=== PATIENT | female | born 1965 | race Caucasian/White ===

== ENCOUNTER 2017-04-15 09:33 | Inpatient (IN) | payer BC ==
[~2017-04-15] VITALS: Ht 160 cm; Wt 86.2 kg
--- NOTE | 2017-04-15 10:12 | Diagnostic Imaging Report ---
History: Left-sided weakness Comparison studies: None Technique: Axial images were obtained from the skull base to the vertex. Coronal and sagittal reconstructions obtained from the axial data. Findings: Scalp/skull: No abnormalities. No fractures, blastic or lytic lesions. Extra-axial spaces: No masses. No fluid collections. Brain sulci: Appropriate for age. Ventricles: Normal in size and configuration. No hydrocephalus. Parenchyma: No abnormal densities. No masses, hemorrhage, acute or chronic cortical vascular insults. Sellar/suprasellar region: No abnormalities Craniocervical junction: Patent foramen magnum. No Chiari one malformation. IMPRESSION: No abnormalities . Signed by: DR Ricardo Suh M.D. on 04/15/2017 10:09 AM
[2017-04-15 10:23] LABS: BASOPHILS % 0.5 % (0.0-1.0); EOSINOPHILS # (AUTO) 0.4 (0.0-0.4); EOSINOPHILS % 4.7 % (0.0-6.0); HEMATOCRIT 34.8 % (34.2-44.1); HEMOGLOBIN 11.8 g/dL (12.0-16.0); LYMPHOCYTES # (AUTO) 2.4 (1.0-3.2); LYMPHOCYTES % 31.6 % (18.0-39.1); MEAN CORPUSCULAR HGB CONC 33.9 g/dL (31-35); MEAN CORPUSCULAR VOLUME 85.5 fL (81-99); MONOCYTES # (AUTO) 0.7 (0.2-0.8); MONOCYTES % 9.1 % (4.4-11.3); NEUTROPHILS # (AUTO) 4.1 (2.1-6.9); NEUTROPHILS % 53.7 % (38.7-80.0); PLATELET COUNT 392 x10e3/uL (140-360); RED BLOOD COUNT 4.07 x10e6/uL (3.6-5.1); RED CELL DISTRIBUTION WIDTH 13.1 % (11.7-14.4)
[2017-04-15 10:48] LABS: ALANINE AMINOTRANSFERASE 18 IU/L (0-55); ALBUMIN 3.8 g/dL (3.5-5.0); ALBUMIN/GLOBULIN RATIO 1.1 (0.8-2.0); ALKALINE PHOSPHATASE 74 IU/L (40-150); ANION GAP 13.9 mmol/L (8-16); BLOOD UREA NITROGEN 12 mg/dL (7-26); BUN/CREATININE RATIO 17 (6-25); CALCIUM 9.3 mg/dL (8.4-10.2); CARBON DIOXIDE 26 mmol/L (22-29); CHLORIDE 105 mmol/L (98-107); CREATININE, SERUM 0.69 mg/dL (0.57-1.11); EST GLOMERULAR FILTRATION RATE > 60 ML/MIN (60-); GLUCOSE 105 mg/dL (74-118); POTASSIUM 3.9 mmol/L (3.5-5.1); SODIUM 141 mmol/L (136-145)
[2017-04-15 11:09] LABS: INR 0.94; PROTHROMBIN TIME 11.8 seconds (11.9-14.5)
[2017-04-15 11:10] LABS: PARTIAL THROMBOPLASTIN TIME 25.2 seconds (23.8-35.5)
[2017-04-15 11:47] LABS: CREATINE KINASE MB 1.8 ng/mL (0-5.0)
[2017-04-15] MEDS: SODIUM CHLORIDE 0.9% 1000ML 1,000 ML IV SCH ×2 (12:00→22:03)
[2017-04-15] MEDS ORDERED: ASPIRIN 81 MG CHEW TAB PO ONE (12:00)
[2017-04-15] MEDS: ACETAMINOPHEN 325 MG TAB PO PRN (12:06)
[2017-04-15] MEDS ORDERED: LORAZEPAM INJ 2 MG/ML VIAL IV ONE (12:45)
--- OUTSIDE RECORDS SUMMARY | 2017-04-15 12:46 | XMS REPORT ---
Author Author [facility] Address Unknown Phone Unavailable Care Team Providers Care Tub Wash Operator Name Role Phone MISTY RIVERA Unavailable Unavailable Problems This patient has no known problems. Allergies, Adverse Reactions, Alerts This patient has no known allergies or adverse reactions. Medications This patient has no known medications. Results Test Description Test Time Test Comments Text Results Atomic Results Result Comments CT BRAIN WO [place] [address] Patient Name: ОЛЬГА GASCA MR #: [id number] : 1965 Age/Sex: 51/F Req #: [id number] Adm Physician: Ordered by: MISTY RIVERA MD Report #: [id number] Location: ER Room/Bed: Procedure: [id number] CT/CT BRAIN WO Exam Date: 04/15/17 Exam Time: 0930 REPORT STATUS: Signed History: Left-sided weakness Comparison studies: None Technique: Axial images were obtained from the skull base to the vertex. Coronal and sagittal reconstructions obtained from the axial data. Findings: Scalp/skull: No abnormalities. No fractures, blastic or lytic lesions. Extra-axial spaces: No masses. No fluid collections. Brain sulci: Appropriate for age. Ventricles: Normal in size and configuration. No hydrocephalus. Parenchyma: No abnormal densities. No masses, hemorrhage, acute or chronic cortical vascular insults. Sellar/suprasellar region: No abnormalities Craniocervical junction: Patent foramen magnum. No Chiari one malformation. IMPRESSION: No abnormalities . Signed by: DR Ricardo Suh M.D. on 04/15/2017 10:09 AM Dictated By: RICARDO WESLEY MD [id number] Transcribed By: MARGARETTE on 04/15/17 1009 COPY TO: MISTY RIVERA MD
[2017-04-15] MEDS ORDERED: PANTOPRAZOLE SO40 MG PO (13:34)
[2017-04-15] MEDS ORDERED: AMBIEN CR12.5 MG (13:34)
[2017-04-15 14:00] VITALS: BP 150/72
[2017-04-15 14:08] VITALS: BP 139/85
--- NOTE | 2017-04-15 14:15 | History and Physical ---
CHIEF COMPLAINT: Left side face and upper and lower extremity tingling and numbness. Left upper extremity and lower extremity weakness since 2 days. HPI: This is a 51-year-old female with a past medical history of bronchial asthma, hypertension, hyperlipidemia, insomnia. She was in her usual state of health until she came to my office this morning with complaint of left-sided facial tingling and numbness, some mild weakness of the left upper extremity and lower extremity. No seizures. This thing happened 2 days ago and still persists. No chest pain. No shortness of breath. No cough. No abdominal pain. No nausea or vomiting. No hematemesis. No melena. PAST MEDICAL HISTORY 1. Hypertension. 2. Hyperlipidemia. 3. Insomnia. 4. Bronchial asthma. PAST SURGICAL HISTORY 1. Hysterectomy. 2. Breast biopsy. HABITS: Denies smoking. Denies alcohol use. Denies illicit drug use. FAMILY HISTORY: Noncontributory. MEDICATIONS: List attached. REVIEW OF SYSTEMS GENERAL: Fatigue and weakness. HEENT: No diplopia. No blurring of vision. CARDIOPULMONARY: No chest pain. No shortness of breath. No cough. ALIMENTARY SYSTEM: No nausea or vomiting. GENITOURINARY: No dysuria. No hematuria. MUSCULOSKELETAL: No joint pain. CENTRAL NERVOUS SYSTEM: Has left-sided weakness, tingling and numbness of the body. No seizures. PHYSICAL EXAMINATION GENERAL: This is a 51-year-old female who is alert and oriented times 3, in no gross distress. VITAL SIGNS: Temperature 98.2, pulse 77, respiratory rate 18, blood pressure 143/94. HEENT: Left-sided face mild weakness. Some tingling and numbness. Pupils are bilaterally equal and reactive to light. The extraocular muscles are intact. NECK: Supple. No JVD. No carotid bruit. LUNGS: Clear to auscultation and percussion bilaterally. No added sound. HEART: S1 and S2. Regular rate and rhythm. No S3, S4 or murmur. ABDOMEN: Soft. Nontender. No guarding. No rigidity. EXTREMITIES: No clubbing. No cyanosis. No pedal edema. Peripheral pulses are +1. CUSTOM HOME INSTALLER: Alert and oriented times 3. Reflexes decreased on the left side. Left upper extremity power 4/5. Left lower extremity power 4/5. Sensation decreased on the left side. Gait is normal. CT of the head is negative. CMP and cardiac enzymes normal. White count 7.62, hemoglobin 11.8, platelets 392. ASSESSMENT 1. Transient ischemic attack kind of symptoms. Will rule out cerebrovascular accident. 2. Hypertension. 3. Hyperlipidemia. 4. Bronchial asthma. PLAN 1. Admit patient to telemetry. 2. Cardiology consult with Dr. Alvarenga. 3. Neurology consult with Dr. Suzy Cai. 4. MRI of the brain. 5. IV fluids with normal saline at 100 mL per hour. 6. Aspirin 325 mg p.o. daily. 7. Neuro checks q.4 h. 8. Lipid panel, ANIBAL, sed rate, hemoglobin A1c and BMP in the morning. Will do echo and carotid. Job#: [id number]
--- NOTE | 2017-04-15 14:48 | Diagnostic Imaging Report ---
History: Left-sided weakness Comparison studies: CT head 04/15/2017 Technique: Sagittal T2; axial DWI, FLAIR, MPGR, T1, Coronal FLAIR. Intravenous contrast: None Findings: Scalp: Normal in signal . No masses . Bone marrow: Normal in signal intensity. Extra-axial: No masses, no fluid collections. Brain sulci: Appropriate for age. Ventricles: Normal in size . No hydrocephalus . Parenchyma: No abnormal signal intensities. No masses, hemorrhage, acute or chronic vascular insults. Suprasellar region: No abnormalities. Craniocervical junction: No abnormalities. Patent foramen magnum. No Chiari one malformation. Vessels: Normal flow-voids in the arteries and sinuses. IMPRESSION: 1. No abnormalities Signed by: DR Ricardo Suh M.D. on 04/15/2017 2:44 PM
[2017-04-15 16:00] VITALS: BP 134/77
--- NOTE | 2017-04-15 18:55 | Consultation ---
DATE OF CONSULTATION: April 15, 2017 CARDIOLOGY CONSULTATION REASON FOR CONSULTATION: TIA. HISTORY OF PRESENT ILLNESS: This is a 51-year-old woman with a history of hypertension, hyperlipidemia, and asthma, who presents with complaints of left-sided weakness. She reports she has been having left-sided facial numbness, as well as weakness of her left arm and legs for the last 3 days. She presented as this did not improve. She presented her primary care physician, Dr. Gutierrez, for further evaluation, who referred her to the ER for further imaging. She denies any chest pain, palpitations, orthopnea, PND, or syncope. She does endorse chronic shortness of breath secondary to her asthma, which is unchanged, as well as lightheadedness when looking up. REVIEW OF SYSTEMS: Negative except as per HPI. PAST MEDICAL HISTORY: Hypertension, hyperlipidemia, asthma. PAST SURGICAL HISTORY: Hysterectomy, lumpectomy. SOCIAL HISTORY: She quit smoking 2 years ago. Previously smoked a third a pack a day for 20 years. No illicit drugs. Occasional alcohol. FAMILY HISTORY: Noncontributory. ALLERGIES: NO KNOWN DRUG ALLERGIES. MEDICATIONS: Please see medication list. PHYSICAL EXAMINATION VITALS: Temperature 97.3 degrees, pulse 76, respiratory rate 19, blood pressure 134/77, oxygen saturation 100% on room air. GENERAL: A well-developed, well-nourished woman in no acute distress. HEENT: Normocephalic and atraumatic. Pupils equal. No scleral icterus. NECK: Supple. No thyromegaly or cervical lymphadenopathy. No carotid bruits. LUNGS: Clear to auscultation bilaterally. No wheezes or crackles. CARDIOVASCULAR: Normal rate. Regular rhythm. No murmur. Normal S1 and S2. ABDOMEN: Soft and nontender. EXTREMITIES: No edema. NEURO: Mild left-sided facial weakness is noted, as well as mild left upper and lower extremity weakness. LABS: WBC 7.62, hemoglobin 11.8, hematocrit 34.8, and platelets 392,000. Sodium 141, potassium 3.9, chloride 105, CO2 26, BUN 12, creatinine 0.69. Troponin 0.001. MRI of brain with no abnormalities. EKG is normal sinus rhythm. Cannot rule out anterior infarct, age-undetermined. IMPRESSION 1. Suspect cerebrovascular accident. 2. Hypertension. 3. Hyperlipidemia. 4. Asthma. RECOMMENDATIONS: Monitor the patient on telemetry. Echocardiogram and carotid Dopplers have been ordered. We will review the images. Obtain lipid panel in the morning. Thank you for this consult. We will continue to follow. Job#: [id number] BRAEDEN
[2017-04-15 18:59] LABS: CHOL/HDL RATIO 3.2 (3.0-3.6)
[2017-04-15] MEDS ORDERED: HYDROCORTISONE SOD SUCCINATE 250 MG VIAL IV ONE (19:10)
[2017-04-15] MEDS ORDERED: PROMETHAZINE 12.5MG/ NACL 0.9% 12.5 MG/50 ML BAG IV ONE (19:10)
[2017-04-15] MEDS ORDERED: VALPROATE SOD INJ 500 MG in SODIUM CHLORIDE 0.9% 100 ML 100 ML IV ONE (19:10)
[2017-04-15 20:00] VITALS: BP 137/95
--- NOTE | 2017-04-15 21:21 | Consultation ---
DATE OF CONSULTATION: April 15, 2017 NEUROLOGY CONSULTATION HISTORY OF PRESENT ILLNESS: Ms. New is a 51-year-old right-hand dominant woman with past medical history significant for hypertension, asthma, and a prior history of complex migraines who presented to [facility] with a 3-day history of left hemiparesis involving the face, arm and leg as well as tingling over the left side of the face, arm and leg. Beginning approximately 3 days ago, the patient noted the gradual onset of tingling over the left side of the face, left arm, and left leg. Ms. New reports the face and arm are more affected than the leg. In addition to the tingling, the patient noted weakness involving the left face, left arm, and left leg. Once again, the weakness is more prominent over the left side of the face and left arm as compared to the left leg. In addition to these symptoms, the patient reports blurred vision, dysarthria, questionable aphasia, and a swollen sensation along the left lower jaw. As stated above, the symptoms came on gradually beginning 3 days ago. In addition to the above symptoms, Ms. New endorses a headache of 2-3 days duration. She described the headache as muscle tension over the left muslim. The patient does endorse photophobia. She does not report phonophobia, nausea, or vomiting. She does endorse lightheadedness, which is intermittent and chronic. Ms. New has a history of complex migraines. She reports previously experiencing similar symptoms, but over the right side of her body in the setting of severe headache with migrainous features. Ms. New has been hospitalized multiple times in the past with complex migraines. She has undergone multiple neuroimaging studies, which, to her knowledge, were normal/negative. The patient was previously treated with oral Depakote for migraine prophylaxis. After undergoing a total hysterectomy, the patient's migraines resolved. Ms. New presented to the emergency center at [facility] on the morning of April 15, 2017 for evaluation of the above symptoms. A CT of the brain without contrast was performed and did not show large territorial ischemia, hemorrhage, mass, or mass affect. The patient was admitted to the hospital for further evaluation and treatment. REVIEW OF SYSTEMS: Changes in vision, hot flashes, confusion, blurred vision, dysarthria, questionable aphasia, facial weakness and tingling, weakness of the left arm and leg with tingling of the left arm and leg, and muscle tightening over the left jaw. The remainder of the 12-point review of systems is negative. PAST MEDICAL HISTORY: Hypertension, asthma, history of complex migraines. PAST SURGICAL HISTORY: Left breast lumpectomy--benign, complete hysterectomy. PAST HOSPITALIZATIONS: The patient was hospitalized multiple times for complex migraines as well as for surgeries documented above. FAMILY HISTORY: The patient's paternal grandmother is from genitourinary cancer. The patient's maternal grandmother is alive and has epilepsy. The patient's mother is alive and has epilepsy. A maternal aunt is alive and has epilepsy. A maternal uncle is from stomach cancer. SOCIAL HISTORY: The patient is single. She has an associates degree in Portuguese. 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 The patient endorses an approximately 20 year pack history of tobacco use. She quit smoking approximately 2 years ago. The patient does endorse alcohol use; she drinks 1 beer 2-3 times per month. The patient does endorse occasional marijuana use for sleep. MEDICATIONS: 1. Hydrochlorothiazide 12.5 mg -- 1/2 tablet by mouth daily. 2. Advair 50/250 mg one puff twice daily. 3. Zolpidem CR 12.5 mg by mouth at bedtime as needed for insomnia. 4. Citalopram 10 mg by mouth daily. 5. Fexofenadine dose unknown by mouth daily. 6. Ibuprofen 800 mg by mouth as needed for pain. Of note, the patient has taken multiple doses of ibuprofen over the past 2-3 days. ALLERGIES: THE PATIENT ENDORSES ALLERGIES TO ASPIRIN AND LORTAB. SHE REPORTS BOTH MEDICATIONS CAUSE ASTHMA EXACERBATION. NO KNOWN FOOD ALLERGIES, NO KNOWN ALLERGY TO LATEX, NO KNOWN ALLERGY TO CONTRAST MATERIALS. PHYSICAL EXAMINATION VITAL SIGNS: Height 63 inches, weight 190 pounds, BMI 33.7 kg/meter squared. Blood pressure 134/77 mmHg, pulse 76 beats per minute, respiratory rate 19, oxygen saturation 100% on room air. GENERAL: The patient is awake and alert, appears mildly distressed. The lights are turned off in the patient's room. HEENT: Normocephalic, atraumatic. Pupils are equal, round and reactive to light. Moist mucous membranes. NECK: Supple. No appreciable thyromegaly. No appreciable carotid bruits. CV: S1, S2. Regular rate and rhythm. No murmurs, rubs or gallops RESPIRATORY: Clear to auscultation bilaterally. No wheezes, rhonchi or rales. EXTREMITIES: The skin is warm and dry. No clubbing, cyanosis or edema. The posterior and dorsalis pedis pulses are 2+ and symmetric. SKIN: Warm and dry. No rashes or lesions. NEUROLOGIC: Memory/attention: The patient is awake and alert, oriented to person, place, time, and situation. Cranial nerves: Cranial nerve I -- not tested. Cranial nerve II, III, IV, AND -- pupils are equal and round, react briskly to light (from 6-7 mm to 5 mm), extraocular movements are intact, no ptosis, no nystagmus. Cranial nerve V -- sensation to light touch and pinprick is intact in the bilateral V1-V3 distributions. Strength of the temporalis and mastoid muscles are within normal limits. Cranial nerve VII -- the face is mildly asymmetric with left central facial weakness. Cranial nerve VIII -- hearing is intact to finger rub bilaterally. Cranial nerve IX, X -- the soft palate elevates equally and symmetrically. Cranial nerve XII -- normal strength of the bilateral sternocleidomastoid and trapezius muscles. Cranial nerve XII -- the tongue protrudes midline and moves symmetrically from side to side. Strength: Bulk is normal and strength is 5/5 in the right deltoid, biceps, triceps, wrist flexors and extensors, finger flexors and extensors, intrinsic hand muscles, hip flexors, knee flexors and extensors, ankle dorsal flexion and plantar flexion, and intrinsic foot muscles. The patient has mild left hemiparesis with strength grossly 4 to 4+/5. Tone is normal. DTRs: Deep tendon reflexes are 2+ and symmetric at the triceps, biceps, brachial radialis, patellas, and Achilles. Plantar responses are flexor bilaterally. Absent clonus. Sensation: Sensation is intact to light touch and pin prick in both arms and both legs. Ms. New does report tingling to light touch over the left arm. Cerebellar: Umundl-nhnf-quagpz and heel-mckeon maneuvers are intact without dysmetria or other impairment. Rapid alternating movements are intact. Gait: Deferred. Speech: Spontaneous speech is normal without appreciable dysarthria or aphasia. Repetition is intact. Involuntary movements: None. Pronator drift: Positive in the left arm and leg. LABORATORY DATA: Sodium 141, potassium 3.9, chloride 105, carbon dioxide 26, anion gap 13.9, BUN 12, creatinine 0.69. Estimated GFR greater than 60. BUN to creatinine ratio 17, glucose 105, calcium 9.3, total bilirubin 0.5. AST 15, ALT 18, alkaline phosphatase 74, creatinine kinase 72, CK MB 1.80, troponin I 0.001, total protein 7.3, albumin 3.8, globulin 3.5, albumin to globulin ratio 1.1. CBC with differential and platelets reveals a white blood cell count of 7.62 with a normal differential. The hemoglobin and hematocrit are 11.8 and 34.8 respectively. The platelet count is 392,000. An erythrocyte sedimentation rate is 11. PT 11.8, INR 0.94, PTT 25.2. Rheumatoid factor is pending. ANIBAL screen is pending. DIAGNOSTIC STUDIES: CT of the brain without contrast on 04/15/2017: There is no evidence of larger territorial ischemia, hemorrhage, mass, or mass affect. MRI of the brain without contrast on 04/15/2017: Images from the MRI of the brain are reviewed. There is no evidence of large territorial ischemia, hemorrhage, mass, or mass affect. There are no acute abnormalities observed. EKG: Normal sinus rhythm at 71 beats per minute. Echocardiogram on 04/15/2017: Left ventricular systolic function is within normal limits with an ejection fraction of 55% to 60%. There is no evidence of significant valvular abnormality. There is no evidence of pericardial effusion. Bilateral carotid ultrasound on 04/15/2017: There is evidence of atherosclerosis without clinically significant narrowing at the left carotid bifurcation and in the left carotid bulb. There is antegrade flow in both vertebral arteries. ASSESSMENT AND PLAN: Ms. New is a 51-year-old [id number] woman with past medical history significant for complex migraines who presented to [facility] with a 3-day history of left-sided neurological deficits in the setting of headache with associated photophobia. On neurological examination, the patient is noted to have enlarged pupils (approximately 6-7 mm). She is noted to have mild left hemiparesis effecting the face, arm and leg. Sensation to light touch and pin prick appears to be intact in the face as well as both arms and both legs. However, Ms. New does report tingling to light touch over the left arm. The patient's laboratory data and diagnostic studies have been reviewed and are documented as above. The MRI of the brain does not demonstrate a stroke. Given the patient's prior medical history and the findings on her neurological examination, I strongly suspect Ms. New is experiencing a complex migraine. To alleviate the patient's migraine, which should lead to resolution of her present neurologic deficits, treatment with the following medications is recommended: 1. Promethazine 12.5 mg IV once. 2. Hydrocortisone 125 mg IV once. 3. Depakote 500 mg IV once. 4. Treatment with this combination of medications should alleviate the patient's headache and the resulting neurologic symptoms, though these may lag by one to two days, possibly longer. Should the patient continue to have a headache following administration of these medications, the medications may be administered a second time. 5. Defer management of the remaining medical comorbidities to the primary and other consulting services. Thank you for this consultation. I will continue to follow this patient with you while she remains in the hospital. Time spent: 70 minutes. Job#: [id number] ROM DAVALOS
--- NOTE | 2017-04-15 21:59 | Diagnostic Imaging Report ---
EXAMINATION: CHEST 2 VIEWS INDICATION: Transient ischemic accident COMPARISON: None FINDINGS: TUBES and LINES: None. LUNGS: Lungs are well inflated. Lungs are clear. There is no evidence of pneumonia or pulmonary edema. PLEURA: No pleural effusion or pneumothorax. HEART AND MEDIASTINUM: The cardiomediastinal silhouette is unremarkable. BONES AND SOFT TISSUES: No acute osseous lesion. Soft tissues are unremarkable. UPPER ABDOMEN: No free air under the diaphragm. IMPRESSION: No acute thoracic abnormality. Signed by: Dr. Garry Townsend M.D. on 04/15/2017 9:56 PM
[2017-04-16] VITALS: BP 127/90
[2017-04-16 00:19] VITALS: BP 127/90
[2017-04-16 06:46] LABS: ANION GAP 12.9 mmol/L (8-16); BLOOD UREA NITROGEN 14 mg/dL (7-26); BUN/CREATININE RATIO 21 (6-25); CALCIUM 8.7 mg/dL (8.4-10.2); CARBON DIOXIDE 26 mmol/L (22-29); CHLORIDE 107 mmol/L (98-107); CHOLESTEROL 184 MD/DL (0-199); CREATININE, SERUM 0.66 mg/dL (0.57-1.11); EST GLOMERULAR FILTRATION RATE > 60 ML/MIN (60-); GLUCOSE 128 mg/dL (74-118); HDL CHOLESTEROL 61 MG/DL (40-60); LDL CHOLESTEROL 111 MG/DL (60-130); POTASSIUM 3.9 mmol/L (3.5-5.1); SODIUM 142 mmol/L (136-145); TRIGLYCERIDES 62 MG/DL (0-149)
[2017-04-16] MEDS ORDERED: SALMETEROL/FLUTICASONE 250/50 INH SCH (07:00)
[2017-04-16] MEDS: SODIUM CHLORIDE 0.9% 1000ML 1,000 ML IV SCH (07:25)
[2017-04-16 08:00] VITALS: BP 123/56
[2017-04-16] MEDS ORDERED: ASPIRIN 325 MG TAB EC PO SCH (09:00)
[2017-04-16 12:00] VITALS: BP 130/73
[2017-04-16] MEDS: ACETAMINOPHEN 325 MG TAB PO PRN (12:51)
--- NOTE | 2017-04-16 17:35 | Progress Note ---
DATE: April 16, 2017 CARDIOLOGY PROGRESS NOTE SUBJECTIVE: Patient denies chest pain. She is complaining of some shortness of breath, but it should be noted that she is not having her inhalers. OBJECTIVE VITAL SIGNS: Temperature 97.5 degrees, pulse 80, respirations 19, blood pressure 130/73, and oxygen saturation 98% on room air. GENERAL: Awake and alert, in no acute distress. LUNGS: Clear to auscultation bilaterally. No wheezes or crackles. CARDIOVASCULAR: Normal rate, regular rhythm. No murmur. Normal S1, S2. ABDOMEN: Soft and nontender. EXTREMITIES: No edema. Mild left-sided weakness. CARDIAC MEDICATIONS: Aspirin 325 mg p.o. daily. LABS: Sodium 146, potassium 3.9, chloride 107, Co2 26, BUN 14, and creatinine 0.66. TELEMETRY: Normal sinus rhythm. IMPRESSION 1. Left-sided weakness, likely secondary to complex migraine per neurology. 2. Hypertension. 3. Hyperlipidemia. 4. Asthma. RECOMMENDATIONS: Continue current cardiac medications. Recommend risk factor modification as carotid Dopplers only demonstrated mild atherosclerotic plaque without evidence of hemodynamically significant stenosis. Echocardiogram was largely unremarkable. Thank you for this consult. We will continue to follow. Job#: [id number] JOSEF
[2017-04-17] MEDS ORDERED: PANTOPRAZOLE SOD 40 MG TABEC PO SCH (09:00)
== END 2017-04-16 16:41 | disposition home or self-care (01) | DRG 103 ==
LOC: ER 09:33 → MED/SURG2 12:43
PROVIDERS: ADMIT Internal Medicine; ATTEND Internal Medicine
DX: G43.109 Migraine with aura, not intractable, without status migrainosus (principal); I10 Essential (primary) hypertension; E78.5 Hyperlipidemia, unspecified; J45.909 Unspecified asthma, uncomplicated; G47.00 Insomnia, unspecified; F12.10 Cannabis abuse, uncomplicated; Z87.891 Personal history of nicotine dependence
CPT/HCPCS: 36415; 70450; 70551; 71046; 80048; 80053; 80061; 82550; 82553; 83036; 84484; 85025; 85610; 85651; 85730; 86039; 86431; 93005; 93306; 93880; 99284; J1720; J2060; J2550; J7030

== ENCOUNTER → 2017-12-02 | Outpatient (CLI) | payer BC ==
[~2017-12-02] MED LIST: AMBIEN CR12.5 MG; PANTOPRAZOLE SO40 MG PO
== END ==
LOC: MAMMO 10:19
PROVIDERS: ATTEND Internal Medicine
DX: Z12.31 Encounter for screening mammogram for malignant neoplasm of breast (principal)
CPT/HCPCS: 77067

== ENCOUNTER 2018-06-04 16:13 | Emergency (ER) | payer BC ==
[~2018-06-04] VITALS: Ht 160 cm; Wt 86.2 kg
[2018-06-04] MEDS ORDERED: KETOROLAC TROMETHAMINE 60 MG/2 ML VIAL IM ONE (17:15)
--- NOTE | 2018-06-04 17:41 | Diagnostic Imaging Report ---
EXAMINATION: CHEST 2 VIEWS INDICATION: Chest pain ^chest pain ^[id number] ^1720 COMPARISON: April 15, 2017 FINDINGS: TUBES and LINES: None. LUNGS: Lungs are well inflated. Lungs are clear. There is no evidence of pneumonia or pulmonary edema. PLEURA: No pleural effusion or pneumothorax. HEART AND MEDIASTINUM: The cardiomediastinal silhouette is unremarkable. BONES AND SOFT TISSUES: No acute osseous lesion. Soft tissues are unremarkable. UPPER ABDOMEN: No free air under the diaphragm. IMPRESSION: No acute thoracic abnormality. Signed by: Dr. Branden Paz M.D. on 06/04/2018 5:37 PM
== END 2018-06-04 18:57 | disposition home or self-care (01) ==
LOC: ER 16:13
DX: R07.89 Other chest pain (principal); F41.1 Generalized anxiety disorder
CPT/HCPCS: 36415; 71046; 84484; 85379; 93005; 99284; J1885

== ENCOUNTER → 2019-04-28 | Outpatient (CLI) | payer BC ==
--- NOTE | 2019-04-28 15:36 | Diagnostic Imaging Report ---
EXAMINATION: CHEST 2 VIEWS INDICATION: ^[id number] ^1508 ^BRONCHITIS COMPARISON: 04/15/2017 FINDINGS: PA and lateral views TUBES and LINES: None. LUNGS: Lungs are well inflated. Lungs are clear. There is no evidence of pneumonia or pulmonary edema. PLEURA: No pleural effusion or pneumothorax. HEART AND MEDIASTINUM: The cardiomediastinal silhouette is unremarkable. BONES AND SOFT TISSUES: No acute osseous lesion. Soft tissues are unremarkable. UPPER ABDOMEN: No free air under the diaphragm. IMPRESSION: No acute thoracic radiographic abnormality. Signed by: Damian Garcia MD on 04/28/2019 3:34 PM
== END ==
LOC: RAD 14:58
PROVIDERS: ATTEND Internal Medicine
DX: J40 Bronchitis, not specified as acute or chronic (principal)
CPT/HCPCS: 71046

== ENCOUNTER 2019-07-23 19:50 | Emergency (ER) | payer BC ==
[~2019-07-23] VITALS: Ht 160 cm; Wt 96.2 kg
--- OUTSIDE RECORDS SUMMARY | 2019-07-23 19:54 | XMS REPORT ---
Author Author [facility] t Organization [facility] Address [address] [place] [address] Phone Unavailable Care Team Providers Care Ops Analyst Name Role Phone GIRMA GUTIERREZ MD PCP GIRMA GUTIERREZ Attphys Unavailable KELVIN, Star PATEL Attphys Unavailable GIRMA GUTIERREZ Admphys Unavailable Payers Payer Name Policy Type Policy Number Effective Date Expiration Date [id number] 2015 00:00:00 [facility] Problems This patient has no known problems. Allergies, Adverse Reactions, Alerts Allergy Name Allergy Type Status Severity Reaction(s) Onset Date Inacti ve Date Treating Clinician Comments Source aspirin DA Active SV 2018-05-28 00:00:00 [facility] Aspirin Allergy to Substance Active Moderate 2017-04-15 00:00:00 [facility] No Known Allergies DA Active U 2014-06-22 00:00:00 [facility] Medications Ordered Medication Name Filled Medication Name Start Date Stop Da te Current Medication? Ordering Clinician Indication Dosage Frequency Signature (SIG) Comments Components Source Pantoprazole Sodium (Protonix) 40 Mg Tablet. Pantopr azole Sodium (Protonix) 40 Mg Tablet.dr Yes 40 Daily [facility] Zolpidem Tartrate (Ambien Cr) 12.5 Mg Tabcr Zolpidem T artrate (Ambien Cr) 12.5 Mg Tabcr Yes [facility] Procedures Procedure Date / Time Performed Performing Clinician Sour e X-ray of chest, two views 2018-06-04 00:00:00 JORGE WARREN [facility] Encounters Start Date/Time End Date/Time Encounter [facility] ID Source 2018-06-04 16:13:00 2018-06-04 18:57:00 Departed Emergency Room [address] [facility] [id number] [facility] 2017-12-02 10:19:00 2017-12-02 10:19:00 [facility]istered [id number] 2017-04-15 12:43:00 2017-04-16 16:41:00 [facility] [id number] [facility] Results Test Description Test Time Test Comments Results Result Comments Source CHEST 2 VIEWS 2019-04-28 15:33:00 [facility] [address] [address] Patient Name: ОЛЬГА GASCA MR #: [id number] : 1965 Age/Sex: 53/F Req #: [id number] Adm Physician: Ordered by: GIRMA GUTIERREZ MD Report #: [id number] Location: [facility] Room/Bed: Procedure: [id number] DX/CHEST 2 VIEWS Exam Date: 04/28/19 Exam Time: 1508 REPORT STATUS: Signed EXAMINATION: CHEST 2 VIEWS INDICATION: [id number] BRONCHITIS COMPARISON: 04/15/2017 FINDINGS: PA and lateral views TUBES and LINES: None. LUNGS: Lungs are well inflated. Lungs are clear. There is no evidence of pneumonia or pulmonary edema. PLEURA: No pleural effusion or pneumothorax. HEART AND MEDIASTINUM: The cardiomediastinal silhouette is unremarkable. BONES AND SOFT TISSUES: No acute osseous lesion. Soft tissues are unremarkable. UPPER ABDOMEN: No free air under the diaphragm. IMPRESSION: No acute thoracic radiographic abnormality. Signed by: Misty Balbuena MD on 04/28/2019 3:34 PM Dictated By: MISTY BALBUENA MD 33 Transcribed By: MARGARETTE on 04/28/191533 COPY TO: GIRMA GUTIERREZ MD D-Dimer Quantitative (PE/DVT) 2018-06-04 18:02:00 Test Item D-Dimer Quantitative (PE/DVT) (test code = 59072-7) < 100 0- 400 As with all in vitro diagnostic tests, the test results should be interpreted by the physician in conjunction with clinical findings and other test results.Test results are reported in NEW D-dimer units(ug/mLFEU).[facility] HospitalTroponin [id number] 17:58:00* Test Item Value Reference Range Interpretation Comments Troponin I (test code = APT8175) 0.003 0-0.300 [facility] 2 [id number] 17:34:00 [address] [place] [address] Patient Name: ОЛЬГА GASCA MR #: [id number] : 1965 Age/Sex: 52/F Req #: [id number] Adm Physician: Ordered by: JORGE WARREN MD Report #: [id number] Location: ER Room/Bed: Procedure: 0412-00 [id number] DX/CHEST 2 VIEWS Exam Date: 06/04/18 Exam Time: 1 REPORT STATUS: Signed EXAMIN ATION: CHEST 2 VIEWS INDICATION: Chest pain chest pain 20 [id number] COMPARISON: April 15, 2017 FINDINGS: TUBES and LINES: None. LUNGS: Lungs are well inflated. Lungs are clear. Ther e is no evidence of pneumonia or pulmonary edema. PLEURA: No pleural eff usion or pneumothorax. HEART AND MEDIASTINUM: The cardiomediastinal silhou ette is unremarkable. BONES AND SOFT TISSUES: No acute osseous lesion. Soft tissues are unremarkable. UPPER ABDOMEN: No free air under the rogelio phragm. IMPRESSION: No acute thoracic abnormality. Signed by : Dr. Eliud Paz M.D. on 06/04/2018 5:37 PM Dictated By: ELIUD Boykin MD 36 Transcribe d By: MARGARETTE on 06/04/181736 COPY TO: JORGE WARREN MD B- TYPE NATRIURETIC [id number] 13:14:00* Test Item Value Reference Range Interpretation Comments B-TYPE NATRIURETIC PEPTIDE (test code = BNP) 19.6 PG/ML 0-100 N - XR CHEST 1 [id number] 12:50:00 FAX: Erasmo eMlvin MD [phone] [place]: St: REG Name: Livia COOPERОЛЬГА [facility] : 12/28/18 [birth year] Age/S: 52/F [address] [place], [place] [address] Unit #: [id number] Loc: [place] [address] Phys: Erasmo Martin MD Acct: [id number] Dis Date: Status: REG ER PHONE #: [phone] Exam Date: 05/28/2018 1249 FAX #: [phone] Reason: SOB EXAMS: CPT CODE: [id number] XR CHEST 1 V 57020 EXAM: XR CHEST 1 VIEW DATE: 05/28/2018 11:17 AM : 1965; Age: 52 years y/o Female INDICATION: SOB COMPARISON: None. TECHNIQUE: AP ch est. FINDINGS/ IMPRESSION: Lines, tubes and hardware: None. Heart, mediastinum and lungs: The heart s ize is normal for technique. The mediastinal contours are normal. Pulmon robert vascularity is normal. The lungs are clear. SL: [id number] at 1250 Reported and signed by: Jessica Guteirrez D.O. CC: Erasmo Martin MD Technologist: Hannah quiñones, RT(R) Trnscrd Date/Time/By: 05/28/2018 (6877) : By: Lala.[email or web address] Orig Print D/T: S: 05/28/2018 (4719) PAGE 1 Signed Report TROPONIN-I [id number] 12:04:00* Test Item Value Reference Range Interpretation Comments TROPONIN-I RAPID (test code = TROPIRAP) 0.00 ng/mL 0.00-0.08 N Performed by certified yard motor operator at [facility] Negative: <= 0.08 Positive: >= 0.09An elevated troponin value alone is not sufficient todiagnose a myocardial infarction. Rather, the patient sclinical presentation (history, physical exam) and ECGshould be used in conjunction with troponin in thediagnostic evaluation of suspected myocardial infarction. Aserial sampling protocol is recommended to facilitate the identification of temporal changes in troponin levels characteristic of [place]. CHEMISTRY 8 [id number] 12:04:00* Test Item Value Reference Range Interpretation Comments ISTAT-SODIUM (test code = NAP) MMOL/L 134-147 ISTAT-POTASSIUM (test code = KP) MMOL/L 3.4-5.0 ISTAT-CHLORIDE (test code = CLP) MMOL/L 100-108 ISTAT CARBON DIOXIDE (test code = ISTAT-CO2) mmol/L 21-33 N ISTAT CALCIUM IONIZED (test code = ISTAT-ANGIE) MG/DL 1.12-1.3 2 ISTAT-GLUCOSE (test code = GLUP) MG/DL 70-110 N ISTAT-BUN (test code = BUNP) MG/DL 7-18 N BEDSIDE CREATININE (test code = CREATBED) MG/DL 0.6-1.3 N GLOMERULAR FILTRATION RATE POC (test code = GFRBED) 94 ML/MIN CHEMISTRY 8 [id number] 12:04:00* Test Item Value Reference Range Interpretation Comments ISTAT-SODIUM (test code = NAP) 141 MMOL/L 134-147 N ISTAT-POTASSIUM (test code = KP) 3.5 MMOL/L 3.4-5.0 N ISTAT-CHLORIDE (test code = CLP) 103 MMOL/L 100-108 N Performed by certified yard motor operator at [facility] ISTAT CARBON DIOXIDE (test code = ISTAT-CO2) 25.0 mmol/L 21-33 N ISTAT CALCIUM IONIZED (test code = ISTAT-ANGIE) 1.13 MG/DL 1.12-1.3 2 N ISTAT-GLUCOSE (test code = GLUP) 109 MG/DL 70-110 N ISTAT-BUN (test code = BUNP) 11 MG/DL 7-18 N BEDSIDE CREATININE (test code = CREATBED) 0.7 MG/DL 0.6-1.3 N GLOMERULAR FILTRATION RATE POC (test code = GFRBED) 94 ML/MIN CBC W/AUTO [id number] 12:04:00* Test Item Value Reference Range Interpretation Comments WHITE BLOOD CELL (test code = WBC) 9.80 x10 3/uL 4.5-11.0 N RED BLOOD CELL (test code = RBC) 4.15 x10 6/uL 3.54-5.02 N HEMOGLOBIN (test code = HGB) 12.1 g/dL 11.0-15.0 N HEMATOCRIT (test code = HCT) 36.3 % 33.0-45.0 N MEAN CELL VOLUME (test code = MCV) 87.5 fL 81.0-99.0 N MEAN CELL HGB (test code = MCH) 29.2 pg 27.0-33.0 N MEAN CELL HGB CONCETRATION (test code = MCHC) 33.3 g/dL 33.0-37. 0 N RED CELL DISTRIBUTION WIDTH CV (test code = RDW) 12.5 % 11.5- 14.5 N RED CELL DISTRIBUTION WIDTH SD (test code = RDW-SD) 39.8 fL 37 .0-54.0 N PLATELET COUNT (test code = PLT) 468 x10 3/uL 150-400 H MEAN PLATELET VOLUME (test code = MPV) 9.5 fL 7.0-9.0 H NEUTROPHIL % (test code = NT%) 57.2 % 56.0-77.0 N IMMATURE GRANULOCYTE % (test code = IG%) 0.3 % 0.0-2.0 N LYMPHOCYTE % (test code = LY%) 33.2 % 14.0-32.0 H MONOCYTE % (test code = MO%) 6.7 % 4.8-9.0 N EOSINOPHIL % (test code = EO%) 2.1 % 0.3-3.7 N BASOPHIL % (test code = BA%) 0.5 % 0.0-2.0 N NUCLEATED RBC % (test code = NRBC%) 0.0 % 0-0 N NEUTROPHIL # (test code = NT#) 5.60 x10 3/uL 2.0-7.6 N IMMATURE GRANULOCYTE # (test code = IG#) 0.03 x10 3/uL 0.00-0.03 N LYMPHOCYTE # (test code = LY#) 3.25 x10 3/uL 1.0-3.8 N MONOCYTE # (test code = MO#) 0.66 x10 3/uL 0.1-0.8 N EOSINOPHIL # (test code = EO#) 0.21 x10 3/uL 0.0-0.2 H BASOPHIL # (test code = BA#) 0.05 x10 3/uL 0.0-0.2 N NUCLEATED RBC # (test code = NRBC#) 0.00 x10 3/uL 0.0-0.1 N MANUAL DIFF REQUIRED (test code = MDIFF) NO - CT HEAD/BRAIN W/O [id number] 11:43:00 Name: ОЛЬГА GASCA [facility] : 1965 Age/S: 52 / F [address] [place] [address] Unit #: [id number] Loc: [place] [address] Phys: Erasmo Martin MD Acct: [id number] Dis Date: Status: PRE ER PHONE #: [phone] Exam Date: 05/28/2018 1131 FAX #: [phone] Reason: history of TIA/stroke and tingling in right bernal EXAMS: CPT CODE: [id number] CT HEAD/BRAIN W/O CONT 57076 CT HEAD WITHOUT CONTRAST: HISTORY: History of stroke, tingling in right hand. PROCEDURE: Multiple axial images from the skull base to the skull vertex were obtained without contrast. Coronal and sagittal reconstructed images were performed. DLP: 629.55 mGy-cm COMPARISON: None FINDINGS: PARENCHYMA: No acute hemorrhage, midline shift, extra-axial fluid collection, mass, or hydrocephalus is present. Napoles-white differentiation appears normal. No sulcal effacement to suggest acute infarct is present. SKULL BASE AND SINUSES: The visualized mastoid air cells are clear. There is no air-fluid level in the visualized paranasal sinuses. Calvarium is intact. IMPRESSION: No acute intracranial abnormality. SL: [id number] at 1143 Reported and signed by: Misty Marsh M.D. CC: Erasmo Martin MD Technologist:RT Emerita(R)(CT) CTDI: DLP: Trnscb Date/Time: 05/28/2018 (1143) t.[email or web address] Orig Print D/T: S: 05/28/2018 (1146) CTDI: DLP: PAGE 1 Signed Report MAMMOGRAPHY DIGITAL SCR [id number] 11:25:00 [address] [place] [address] Patient Name: ОЛЬГА AGSCA MR #: [id number] : 1965 Age/Sex: 51/F Req #: [id number] [facility] Physician: Ordered by: GIRMA GUTIERREZ MD Report #: [id number] Location: MAMMO Room/Bed: Procedure: 1010-000 4 MG/MAMMOGRAPHY DIGITAL SCR BILAT Exam Date: 12/02/17 Exam Time: 1103 REPORT STATUS: S igned #[id number] - MGSCRBIL #BILATERAL DIGITAL SCREENING MAMMOGRAM W ITH CAD: 12/02/2017 CLINICAL: Routine screening. Comparison is made to exam dated: 11/21/2014 mammogram - [facility]. Curre nt study contains 6 films. The tissue of both breasts is heterogeneously den se. This may lower the sensitivity of mammography. Current study was also evaluated with a Computer Aided Detection (CAD) system. There are benign smooth cifications in both breasts. There also are post operative findings in the left breast with a scar marker present. No significant masses, calcifications, or other findings are seen in either breast. There has been no significant interval change. IMPRESSION: BENIGN There is no mammographic evidence of malignancy. A 1 year screening mammogram is recommended. The patient will be notified by letter of the results. Joby Strickland Jr., D.O. cw/:12/16/2017 09:02:37 Billiard Table Mechanic: Fabiola PINEDA(R)(M), [facility] letter sent: Compared to Prior B9 Mammo gram BI-RADS: 2 Benign Dictated By: JOBY STRICKLAND DO 1 Transcribed By: ABDIRASHID on 12/16/17901 COPY TO: GIRMA GUTIERREZ MD Sodium Tqawm1598-02-30 07:00:00* Test Item Value Reference Range Interpretation Comments Sodium Level (test code = 2951-2) 142 136-145 [facility]assium [id number] 07:00:00* Test Item Value Reference Range Interpretation Comments Potassium Level (test code = 2823-3) 3.9 3.5-5.1 [facility] HospitalChloride [id number] 07:00:00* Test Item Value Reference Range Interpretation Comments Chloride Level (test code = 2075-0) 107 98-107 [facility] HospitalCarbon Dioxide Qfxoz2288-30-78 07:00:00* Test Item Value Reference Range Interpretation Comments Carbon Dioxide Level (test code = 2028-9) 26 22-29 [facility] HospitalAnion Kbf0040-89-35 07:00:00* Test Item Value Reference Range Interpretation Comments Anion Gap (test code = 28085-0) 12.9 8-16 [facility] HospitalBlood Urea Rmvmdjse6383-24-44 07:00:00* Test Item Value Reference Range Interpretation Comments Blood Urea Nitrogen (test code = 3094-0) 14 7-26 [facility] HospitalCreatinine2018-02-22 07:00:00* Test Item Value Reference Range Interpretation Comments Creatinine (test code = 2160-0) 0.66 0.57-1.11 [facility] HospitalBUN/Creatinine Frkir0796-63-15 07:00:00* Test Item Value Reference Range Interpretation Comments BUN/Creatinine Ratio (test code = 3097-3) 21 6-25 [facility] HospitalEstimat Glomerular Filtration Rate 2017-04-16 07:00:00* Test Item Value Reference Range Interpretation Comments Estimat Glomerular Filtration Rate (test code = 18332-8) 60- >60 Ranges were taken from the National Kidney Disease Education Program and the [facility] Kid[facility] Foundation literature.Reference ranges:60 or greater: Srmmve75-82 ( for 3 consecutive months): Chronic kidney disease 15 or less: Kidney failureNacogdoches Memorial HospitalGlucose Zjggt2620-09-34 07:00:00* Test Item Value Reference Range Interpretation Comments Glucose Level (test code = TOE3315) 128 74-118 H [facility] HospitalCalcium Kpfvm0651-47-29 07:00:00* Test Item Value Reference Range Interpretation Comments Calcium Level (test code = 31624-0) 8.7 8.4-10.2 [facility] HospitalTriglycerides Seeiw0367-51-45 07:00:00* Test Item Value Reference Range Interpretation Comments Triglycerides Level (test code = 2571-8) 62 0-149 [facility] HospitalCholesterol Bablv1090-58-74 07:00:00* Test Item Value Reference Range Interpretation Comments Cholesterol Level (test code = 2093-3) 184 0-199 Less than 200 mg/dL Low Wixc036 - 239 mg/dL Borderline Fejj456 m g/dl and greater High Risk [facility] HospitalLDL Qtaqdcmqwkg0184-99-79 07:00:00* Test Item Value Reference Range Interpretation Comments LDL Cholesterol (test code = 2089-1) 111 60-130 [facility] HospitalHDL Dpzaptxwooo3591-49-10 07:00:00* Test Item Value Reference Range Interpretation Comments HDL Cholesterol (test code = 2085-9) 61 40-60 H [facility] HospitalCholesterol/HDL Hsdje9486-13-54 07:00:00 * Test Item Value Reference Range Interpretation Comments Cholesterol/HDL Ratio (test code = 9830-1) 3.0 3.0-3.6 [facility] HospitalHemoglobin A1c Jfyhxyn2445-23-92 06:24:00 * Test Item Value Reference Range Interpretation Comments Hemoglobin A1c Percent (test code = Hemoglobin A1c Percent) 5.6 4.0-7.0 [facility] HospitalErythrocyte Sedimentation Hwmm6886-96-41 17:41:00* Test Item Value Reference Range Interpretation Comments Erythrocyte Sedimentation Rate (test code = 4537-7) 11 0- 20 [facility] HospitalCreatine Nxsjsq4596-14-46 11:53:00* Test Item Value Reference Range Interpretation Comments Creatine Kinase (test code = 2157-6) 72 29-168 [facility] HospitalCreatine Kinase UG8532-34-97 11:53:00* Test Item Value Reference Range Interpretation Comments Creatine Kinase MB (test code = 10987-2) 1.80 0-5.0 [facility] HospitalTroponin Q1058-57-47 11:53:00* Test Item Value Reference Range Interpretation Comments Troponin I (test code = PFL5919) 0.001 0-0.300 [facility] Dnylnjgur0559-27-59 11:22:00* Test Item Value Reference Range Interpretation Comments Total Bilirubin (test code = 1975-2) 0.5 0.2-1.2 [facility] HospitalAspartate Amino Transf (AST/SGOT) 2017-04-15 11:22:00* Test Item Value Reference Range Interpretation Comments Aspartate Amino Transf (AST/SGOT) (test code = Aspartate Amino Transf (AST/SGOT)) 15 5-34 [facility] HospitalAlanine Aminotransferase (ALT/SGPT) 2017-04-15 11:22:00* Test Item Value Reference Range Interpretation Comments Alanine Aminotransferase (ALT/SGPT) (test code = 1742-6) 18 0-55 [facility] HospitalTotal Jbogcku8129-73-57 11:22:00* Test Item Value Reference Range Interpretation Comments Total Protein (test code = 2885-2) 7.3 6.5-8.1 [facility] HospitalAlbumin2018-02-21 11:22:00* Test Item Value Reference Range Interpretation Comments Albumin (test code = 1751-7) 3.8 3.5-5.0 [facility] HospitalGlobulin2018-02-21 11:22:00* Test Item Value Reference Range Interpretation Comments Globulin (test code = 66491-3) 3.5 2.3-3.5 [facility] HospitalAlbumin/Globulin Jytya3885-79-00 11:22:00 * Test Item Value Reference Range Interpretation Comments Albumin/Globulin Ratio (test code = 1759-0) 1.1 0.8-2.0 [facility] HospitalAlkaline Fneihrbiigl6991-19-23 11:22:00* Test Item Value Reference Range Interpretation Comments Alkaline Phosphatase (test code = 6768-6) 74 40-150 [facility] HospitalProthrombin Trhe1033-91-93 11:12:00* Test Item Value Reference Range Interpretation Comments Prothrombin Time (test code = 5902-2) 11.8 11.9-14.5 L [facility] HospitalProthromb Time International Ratio 2017-04-15 11:12:00* Test Item Value Reference Range Interpretation Comments Prothromb Time International Ratio (test code = 6301-6) 0.94 Oral Anticoagulant Therapy INR Values:1. Low Intensity Therapy 1.5 - 2.02 . Moderate Intensity Therapy 2.0 - 3.03. High Intensity Therapy(1) 2.5 - 3. 54. High Intensity Therapy(2) 3.0 - 4.05. Panic Value INR > 5.0 [facility] HospitalActivated Partial Thromboplast Time 2017-04-15 11:12:00* Test Item Value Reference Range Interpretation Comments Activated Partial Thromboplast Time (test code = 98472-3) 25.2 23.8-35.5 [facility] HospitalWhite Blood Ofnht5872-12-68 10:29:00* Test Item Value Reference Range Interpretation Comments White Blood Count (test code = 6690-2) 7.62 4.8-10.8 [facility] HospitalRed Blood Yexxh6987-24-90 10:29:00* Test Item Value Reference Range Interpretation Comments Red Blood Count (test code = 789-8) 4.07 3.6-5.1 [facility] HospitalHemoglobin2018-02-21 10:29:00* Test Item Value Reference Range Interpretation Comments Hemoglobin (test code = 94566-0) 11.8 12.0-16.0 L [facility] HospitalHematocrit2018-02-21 10:29:00* Test Item Value Reference Range Interpretation Comments Hematocrit (test code = 4544-3) 34.8 34.2-44.1 [facility] HospitalMean Corpuscular Dfwvza8840-95-39 10:29:00* Test Item Value Reference Range Interpretation Comments Mean Corpuscular Volume (test code = 787-2) 85.5 81-99 [facility] HospitalMean Corpuscular Jasfuevnha5992-45-65 10:29:00* Test Item Value Reference Range Interpretation Comments Mean Corpuscular Hemoglobin (test code = 785-6) 29.0 28-32 [facility] HospitalMean Corpuscular Hemoglobin Concent 2017-04-15 10:29:00* Test Item Value Reference Range Interpretation Comments Mean Corpuscular Hemoglobin Concent (test code = 786-4) 33.9 31-35 [facility] HospitalRed Cell Distribution Nwkxb8373-08-95 10:29:00* Test Item Value Reference Range Interpretation Comments Red Cell Distribution Width (test code = 34180-6) 13.1 11.7 -14.4 [facility] HospitalPlatelet Fruao5885-19-24 10:29:00* Test Item Value Reference Range Interpretation Comments Platelet Count (test code = 777-3) 392 140-360 H [facility] HospitalNeutrophils (%) (Auto)2017-04-15 10:29:00 * Test Item Value Reference Range Interpretation Comments Neutrophils (%) (Auto) (test code = 97182-7) 53.7 38.7-80.0 [facility] HospitalLymphocytes (%) (Auto)2017-04-15 10:29:00 * Test Item Value Reference Range Interpretation Comments Lymphocytes (%) (Auto) (test code = 736-9) 31.6 18.0-39.1 [facility] HospitalMonocytes (%) (Auto)2017-04-15 10:29:00* Test Item Value Reference Range Interpretation Comments Monocytes (%) (Auto) (test code = 5905-5) 9.1 4.4-11.3 [facility] HospitalEosinophils (%) (Auto)2017-04-15 10:29:00 * Test Item Value Reference Range Interpretation Comments Eosinophils (%) (Auto) (test code = 713-8) 4.7 0.0-6.0 [facility] HospitalBasophils (%) (Auto)2017-04-15 10:29:00* Test Item Value Reference Range Interpretation Comments Basophils (%) (Auto) (test code = 706-2) 0.5 0.0-1.0 [facility] HospitalIM GRANULOCYTES %2017-04-15 10:29:00* Test Item Value Reference Range Interpretation Comments IM GRANULOCYTES % (test code = IM GRANULOCYTES %) 0.4 0.0- 1.0 [facility] HospitalNeutrophils # (Auto)2017-04-15 10:29:00* Test Item Value Reference Range Interpretation Comments Neutrophils # (Auto) (test code = 751-8) 4.1 2.1-6.9 [facility] HospitalLymphocytes # (Auto)2017-04-15 10:29:00* Test Item Value Reference Range Interpretation Comments Lymphocytes # (Auto) (test code = 59499-0) 2.4 1.0-3.2 [facility] HospitalMonocytes # (Auto)2017-04-15 10:29:00* Test Item Value Reference Range Interpretation Comments Monocytes # (Auto) (test code = 742-7) 0.7 0.2-0.8 [facility] HospitalEosinophils # (Auto)2017-04-15 10:29:00* Test Item Value Reference Range Interpretation Comments Eosinophils # (Auto) (test code = 711-2) 0.4 0.0-0.4 [facility] HospitalBasophils # (Auto)2017-04-15 10:29:00* Test Item Value Reference Range Interpretation Comments Basophils # (Auto) (test code = 704-7) 0.0 0.0-0.1 [facility] HospitalAbsolute Immature Granulocyte (auto 2017-04-15 10:29:00* Test Item Value Reference Range Interpretation Comments Absolute Immature Granulocyte (auto (geo t code = Absolute Immature Granulocyte (auto) 0.03 0-0.1 [facility] HospitalCHEST 2 VIEWS [facility] [address] [place] [address] Patient Name: ОЛЬГА GASCA MR #: [id number] : 1965 Age/Sex: 51/F Req #: [id number] Adm Physician: GIRMA GUTIERREZ MD Ordered by: GIRMA GUTIERREZ MD Report #: [id number] Location: MED/SURG2 Room/Bed: [facility] Procedure: [id number] -[id number] DX/CHEST 2 VIEWS Exam Date: 04/15/17 Exam Time : 2107 REPORT STATUS: Signed EXAMINATION: CHEST 2 VIEWS INDIC ATION: Transient ischemic accident COMPARISON: None F INDINGS: TUBES and LINES: None. LUNGS: Lungs are well inflated. Lungs are clear. There is no evidence of pneumonia or pulmonary edema. PLEURA : No pleural effusion or pneumothorax. HEART AND MEDIASTINUM: The cardiom ediastinal silhouette is unremarkable. BONES AND SOFT TISSUES: No acut e osseous lesion. Soft tissues are unremarkable. UPPER ABDOMEN: No free air under the diaphragm. IMPRESSION: No acute thoracic abnormality. Signed by: Dr. Garry Townsend M.D. on 04/15/2017 9:56 PM Dictated By: GARRY KRISHNAN MD 55 Transcribed By: MARGARETTE on 04/15/172155 COPY TO: Lucretia GUTIERREZ MD MRI BRAIN [place] [address] Patient Name: ОЛЬГА GASCA MR #: [id number] : 1965 Age/Sex: 51/F Req #: [id number] Adm Physician: GIRMA GUTIERREZ MD Ordered by: MISTY RIVERA MD Report #: [id number] Location: MED/SURG2 Room/Bed: 213-1 Procedure: MRI/MRI BRAIN WO Exam Date: Exam Time: REPORT STATUS: Signed History: Left-sided weakness Comparison studies: CT head 04/15/2017 Technique: Sagittal T2; axial DWI, FLAIR, MPGR, T1, [place] nal FLAIR. Intravenous contrast: None Findings: Scalp: Normal in sig nal . No masses . Bone marrow: Normal in signal intensity. Extra-axial: No masses, no fluid collections. Brain sulci: Appropriate for age. Vent ricles: Normal in size . No hydrocephalus . Parenchyma: No abnormal signa l intensities. No masses, hemorrhage, acute or chronic vascular insults. Suprasellar region: No abnormalities. Craniocervical junction: No abnormalitie s. Patent foramen magnum. No Chiari one malformation. Vessels: Normal flow -voids in the arteries and sinuses. IMPRESSION: 1. No abnormalities Signed by: DR Ricardo Suh M.D. on 04/15/2017 2:44 PM Dictated By: RICARDO GONZALEZ MD [id number] Transcribed By: MARGARETTE on 04/15/17 1444 COPY TO: MISTY PIERRE SE, MD CT BRAIN WO [place] [address] Patient Name: ОЛЬГА GASCA MR #: [id number] : 1965 Age/Sex: 51/F Req #: [id number] Adm Physician: Ordered by: MISTY RIVERA MD Report #: [id number] Location: ER Room/Bed: Procedure: [id number] CT/CT BRAIN WO Exam Parminder e: 04/15/17 Exam Time: 09 REPORT STATUS: Sign ed History: Left-sided weakness Comparison studies: None Technique: Axial images were obtained from the skull base to the vertex. Coronal and s agittal reconstructions obtained from the axial data. Findings: Scalp/ skull: No abnormalities. No fractures, blastic or lytic lesions. Extra-a xial spaces: No masses. No fluid collections. Brain sulci: Appropriate for age. Ventricles: Normal in size and configuration. No hydrocephalus. Parenchyma: No abnormal densities. No masses, hemorrhage, acute or chronic cortical vascular insults. Sellar/suprasellar region: No abnormalities C raniocervical junction: Patent foramen magnum. No Chiari one malformation. IMPRESSION: No abnormalities . Signed by: Tk Velásquez on 04/15/2017 10:09 AM Dictated By: RICARDO GONZALEZ MD [facility] Signed By: RICARDO GONZALEZ MD on 04/15/17 100 Transcribed By: MARGARETTE lopez 04/15/17 100 COPY TO: MISTY RIVERA MD
--- NOTE | 2019-07-23 20:25 | Emergency Department Note ---
History of Present Illnes History of Present Illness Chief Complaint: Extremity Trauma/Pain History of Present Illness This is a 53 year old female with a history of HTN and asthma, who was walking outside this evening, when she tripped and fell onto gravel, landing on her left upper extremity. Pt states that her LUE was flexed and against her body, during the fall. She states that she "laid there for a few minutes, before she could get up." Pt denies any dizziness or syncopal symptom. She is having some pain in the left wrist, and also in the left elbow area, when she attempts to flex the LUE. 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 Any updates have been documented here. Past Medical History Recent Fever: No Clinical Suspicion of Infectio: No New/Unexplained Change in Ment: No Past Medical History: Hypertension, CVA, Asthma Other Medical History: Migraines Left sided slight weakness from CVA 2018 (pt ambulatory) Past Surgical History: Hysterectomy Other Surgery: Lumpectomy right breast (corina) Social History Smoking Cessation: Never Smoker Counseling Performed: No Alcohol Use: None Any Illegal Drug Use: No TB Exposure/Symptoms: No Physically hurt or threatened: No Other Last Tetanus: UTD Any Pre-Existing Lines (PICC,: No Is patient up to date on immun: No Last Flu: UNK Last Pneumovax: UNK Review of Systems Review of Systems Constitutional: no symptoms EENTM: no symptoms Respiratory: no symptoms Gastrointestinal: no symptoms Musculoskeletal: no symptoms Neurological: no symptoms Psychological: no symptoms, as per HPI, anxiety, depressed, emotional problems, other Review of other systems All other systems reviewed and negative. Physical Exam Related Data Allergies: Coded Allergies: aspirin (Verified Allergy, Intermediate, 04/15/17) WHEEZING Triage Vital Signs Vital Signs Date Time Temp Pulse Resp B/P (MAP) Pulse Ox O2 Delivery O2 Flow Rate FiO2 07/23/19 20:09 98.2 146 20 146/90 95 Vital signs reviewed: Yes Physical Exam CONSTITUTIONAL Constitutional: well-developed, well-nourished HENT HENT: normocephalic, atraumatic, oropharynx clear/moist, nose normal HENT L/R: left ext ear normal, right ext ear normal EYES Eyes: PERRL, conjunctivae normal NECK Neck: ROM normal PULMONARY Pulmonary: effort normal, breath sounds normal CARDIOVASCULAR Cardiovascular: regular rhythm, heart sounds normal, capillary refill normal, normal rate GASTROINTESTINAL GENITOURINARY SKIN Skin: warm, dry MUSCULOSKELETAL Musculoskeletal: tenderness (ttp of soft tissue around the left wrist, with no deformity; movement of left wrist, causes pain in the right elbow; unable to flex and extend LUE, without pain; no palpable tenderness or abnormality of the epicondyles ), swelling NEUROLOGICAL PSYCHOLOGICAL Results Imaging Imaging results reviewed: Yes Imaging Comments [place] [address] Patient Name: ОЛЬГА GASCA MR #: [id number] : 1965 Age/Sex: 53/F Req #: [id number] Adm Physician: Ordered by: ELODIA MCCARTHY MD Report #: [id number] Location: [facility] Room/Bed: Procedure: [id number] HOPD/ELBOW 3 VIEW LT - HOPD Exam Date: 07/23/19 Exam Time: 2042 REPORT STATUS: Signed X-ray left wrist 3 views X-ray left forearm 2 views X-ray left elbow 3 views HISTORY: Pain. COMPARISON: None available. FINDINGS: Bones: Suspect a nondisplaced radial head/neck fracture Joints: Small joint effusion. Soft tissues: The soft tissues appear unremarkable. IMPRESSION: Suspect a nondisplaced radial head/neck fracture. Small elbow joint effusion. Signed by: Ronni Iyer DO on 07/23/2019 9:53 PM Dictated By: RONNI IYER DO 53 Transcribed By: MARGARETTE on 07/23/192152 COPY TO: ELODIA MCCARTHY MD~ Diagnostics Tests Diagnostic test(s) reviewed: Yes Critical Care Time Subsequent provider I assumed direction of critical care for this patient from another provider of my specialty. Assessment & Plan Assessment & Plan Final Impression: (1) ESSENTIAL (PRIMARY) HYPERTENSION (2) SLIPPING, TRIPPING AND STUMBLING W/O FALLING, UNSP, INIT (3) UNSP FRACTURE OF UPPER END OF LEFT RADIUS, INIT FOR CLOS FX Assessment & Plan Apply ice to the left elbow, frequently, for the next several days, to help with pain and swelling. Utilize the sling, as tolerated for comfort. Follow-up with Orthopedics on 07/25/2019, or as early as possible this week, for definitive management of the left elbow fracture. You may take Ibuprofen 800 mg every 8 hours, with food, and use the Tylenol with codeine as needed, for breakthrough pain. Take care NOT to become constipated, while taking the Tylenol #3. Increase fluid intake, fiber intake and take an over the counter stool softener, such as Colace, or you may use Miralax, if you become constipated. 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 Depart Disposition: HOME, SELF-CARE Last Vital Signs Date Time Temp Pulse Resp B/P (MAP) Pulse Ox O2 Delivery O2 Flow Rate FiO2 07/23/19 20:09 98.2 146 20 146/90 95 Home Meds Active Scripts Acetaminophen With Codeine (TYLENOL WITH CODEINE #3 TABLET) 1 Each Tablet, 1-2 TAB PO Q6H for pain, #20 TAB 0 Refills Do NOT take and drive or operate machinery. Prov:ELODIA MCCARTHY MD 07/23/19 Reported Medications Pantoprazole Sodium* (PROTONIX) 40 Mg Tablet.dr, 40 MG PO DAILY, TAB 04/15/17 Zolpidem Tartrate (AMBIEN CR) 12.5 Mg Tabcr 04/15/17 ELODIA MCCARTHY MD July 23, 2019 20:25
--- NOTE | 2019-07-23 21:56 | Diagnostic Imaging Report ---
X-ray left wrist 3 views X-ray left forearm 2 views X-ray left elbow 3 views HISTORY: Pain. COMPARISON: None available. FINDINGS: Bones: Suspect a nondisplaced radial head/neck fracture Joints: Small joint effusion. Soft tissues: The soft tissues appear unremarkable. IMPRESSION: Suspect a nondisplaced radial head/neck fracture. Small elbow joint effusion. Signed by: Ronni Iyer DO on 07/23/2019 9:53 PM
[2019-07-23] MEDS ORDERED: TYLENOL WITH C1 EACH PO (22:37)
== END 2019-07-23 23:00 | disposition home or self-care (01) ==
LOC: FSED 19:50
DX: S52.125A Nondisplaced fracture of head of left radius, initial encounter for closed fracture (principal); M25.422 Effusion, left elbow; W01.0XXA Fall on same level from slipping, tripping and stumbling without subsequent striking against object, initial encounter; Y93.01 Activity, walking, marching and hiking; Y92.008 Other place in unspecified non-institutional (private) residence as the place of occurrence of the external cause; I10 Essential (primary) hypertension; J45.909 Unspecified asthma, uncomplicated; Z86.73 Personal history of transient ischemic attack (TIA), and cerebral infarction without residual deficits
CPT/HCPCS: 99283

== ENCOUNTER → 2019-08-09 | Outpatient (CLI) | payer BC ==
[~2019-08-09] MED LIST changes: +TYLENOL WITH C1 EACH PO
--- NOTE | 2019-08-09 12:08 | Diagnostic Imaging Report ---
TECHNIQUE: Magnetic resonance imaging of the RIGHT ANKLE was performed WITHOUT injected contrast. COMPARISON: None available. HISTORY: Right ankle pain FINDINGS: LIGAMENTS: Medial Complex: Intact Lateral Complex: Edema and irregularity along the anterior talofibular and calcaneofibular ligaments. No tendon discontinuity TENDONS: Medial: Posterior tibial and flexor tendons intact Lateral: Peroneal tendons intact Anterior: Anterior tibial and extensor tendons intact Achilles: Insertional tendinopathy of the Achilles tendon with thickening and mucoid degeneration. No tear. BONES: No focal or infiltrative bone marrow replacing abnormality. No acute fracture or osteonecrosis. JOINTS: Cartilage: No focal defect is identified involving the tibiotalar joint. Other: Fluid within the joints is within physiologic limits. SOFT TISSUES: Otherwise, unremarkable. IMPRESSION: Ankle inversion injury with sprain/partial tearing of the lateral ankle ligaments. Insertional Achilles tendinopathy. No tear. Signed by: Dr. Baltazar Leblanc M.D. on 08/09/2019 12:04 PM
== END ==
LOC: MRI 08:33
PROVIDERS: ATTEND Specialist
DX: S93.401A Sprain of unspecified ligament of right ankle, initial encounter (principal)

== ENCOUNTER 2019-10-18 10:00 | Outpatient (RCR) | payer BC | END 2019-10-24 | LOC: PT 10:00 | PROVIDERS: ATTEND Specialist | DX: S52.132A Displaced fracture of neck of left radius, initial encounter for closed fracture (principal); S93.401A Sprain of unspecified ligament of right ankle, initial encounter; M79.671 Pain in right foot; M25.671 Stiffness of right ankle, not elsewhere classified; M25.522 Pain in left elbow; M62.81 Muscle weakness (generalized) ==

== ENCOUNTER 2019-11-11 08:00 | Outpatient (RCR) | payer BC | END 2019-11-23 | LOC: PT 08:00 | PROVIDERS: ATTEND Specialist | DX: S93.401A Sprain of unspecified ligament of right ankle, initial encounter (principal); S52.92XA Unspecified fracture of left forearm, initial encounter for closed fracture ==

== ENCOUNTER → 2020-02-06 | Outpatient (CLI) | payer BC | LOC: MAMMO 09:37 | PROVIDERS: ATTEND Internal Medicine | DX: Z12.31 Encounter for screening mammogram for malignant neoplasm of breast (principal) | CPT/HCPCS: 77067 ==

== ENCOUNTER 2020-08-10 17:10 | Observation (INO) | payer BC, OTHER ==
[~2020-08-10] VITALS: Ht 160 cm; Wt 94.4 kg
[2020-08-10] MEDS ORDERED: LASIX20 MG PO (18:19)
[2020-08-10] MEDS ORDERED: MONTELUKAST SOD10 MG PO (18:19)
[2020-08-10] MEDS ORDERED: METFORMIN HCL500 MG PO (18:19)
[2020-08-10] MEDS ORDERED: vit d3 (18:19)
[2020-08-10] MEDS ORDERED: POTASSIUM CHLO10 ME1 PO (18:19)
[2020-08-10] MEDS ORDERED: LOSARTAN POTASS25 MG PO (18:19)
[2020-08-10] MEDS ORDERED: SODIUM CHLORIDE FLUSH 10 ML SYR INJ PRN (19:30)
[2020-08-10] MEDS ORDERED: NITROGLYCERIN 0.4 MG SUBL SL PRN (19:30)
[2020-08-10] MEDS ORDERED: ONDANSETRON HCL INJ 2MG/ML 2ML 2 MG/ML VIAL IV PRN (19:30)
[2020-08-10] MEDS ORDERED: ASPIRIN 81 MG CHEW TAB PO ONE (19:30)
[2020-08-10] MEDS ORDERED: MORPHINE SULFATE INJ 2 MG/ML SYR IV PRN (19:30)
[2020-08-10] MEDS ORDERED: DEXTROSE 50% SYRINGE 50 ML IV PRN (19:45)
[2020-08-10] MEDS: INSULIN LISPRO 100 UNIT/1 ML 3ML VIAL SQ SCH (21:00)
[2020-08-10 21:25] VITALS: BP 152/89
[2020-08-10 22:15] VITALS: BP 152/86
[2020-08-10] MEDS ORDERED: ASPIRIN81 MG PO (23:55)
[2020-08-11 01:02] VITALS: BP 160/97
[2020-08-11 02:51] LABS: CREATINE KINASE 42 IU/L (29-168)
[2020-08-11 04:45] VITALS: BP 140/82
[2020-08-11] MEDS ORDERED: albuterol IH (05:19)
[2020-08-11 07:28] LABS: BASOPHILS # (AUTO) 0.1 (0.0-0.1); BASOPHILS % 0.6 % (0.0-1.0); EOSINOPHILS # (AUTO) 0.7 (0.0-0.4); EOSINOPHILS % 6.8 % (0.0-6.0); HEMATOCRIT 35.7 % (34.2-44.1); HEMOGLOBIN 11.3 g/dL (12.0-16.0); LYMPHOCYTES % 41.6 % (18.0-39.1); MEAN CORPUSCULAR HEMOGLOBIN 27.6 pg (28-32); MEAN CORPUSCULAR HGB CONC 31.7 g/dL (31-35); MEAN CORPUSCULAR VOLUME 87.1 fL (81-99); MONOCYTES # (AUTO) 0.9 (0.2-0.8); MONOCYTES % 9.1 % (4.4-11.3); NEUTROPHILS # (AUTO) 3.9 (2.1-6.9); NEUTROPHILS % 41.5 % (38.7-80.0); PLATELET COUNT 464 x10e3/uL (140-360)
[2020-08-11] MEDS: INSULIN LISPRO 100 UNIT/1 ML 3ML VIAL SQ SCH ×2 (07:30→11:30)
[2020-08-11 07:39] LABS: CREATINE KINASE 45 IU/L (29-168)
[2020-08-11 08:00] VITALS: BP 133/75
[2020-08-11 08:04] LABS: BLOOD UREA NITROGEN 15 mg/dL (7-26); BUN/CREATININE RATIO 20 (6-25); CALCIUM 8.7 mg/dL (8.4-10.2); CARBON DIOXIDE 25 mmol/L (22-29); CHLORIDE 105 mmol/L (98-107); CREATININE, SERUM 0.74 mg/dL (0.57-1.11); EST GLOMERULAR FILTRATION RATE > 60 ML/MIN (60-); GLUCOSE 108 mg/dL (74-118); SODIUM 141 mmol/L (136-145)
[2020-08-11 08:14] VITALS: BP 133/75
[2020-08-11] MEDS ORDERED: ASPIRIN 81 MG ENTERIC COATED PO SCH ×2 (09:00)
[2020-08-11 12:22] VITALS: BP 137/74
[2020-08-11] MEDS ORDERED: ACETAMINOPHEN 325 MG TAB PO PRN (15:30)
[2020-08-11 15:57] VITALS: BP 141/75
[2020-08-11] MEDS ORDERED: IBUPROFEN 400 MG TAB PO ONE (16:00)
[2020-08-11] MEDS ORDERED: SALINE 0.65% NAS SOLN 1 SPRAY BTL SCH (17:00)
[2020-08-12] MEDS ORDERED: ASPIRIN 81 MG CHEW TAB PO SCH (09:00)
[2020-08-12] MEDS ORDERED: MONTELUKAST SODIUM 10 MG TAB PO SCH (09:00)
== END 2020-08-11 17:05 | disposition home or self-care (01) ==
LOC: FSED 17:40 → ERHOLD 19:20 → MED/SURG 21:30
PROVIDERS: ADMIT Internal Medicine; ATTEND Internal Medicine
DX: R07.9 Chest pain, unspecified (principal); E11.9 Type 2 diabetes mellitus without complications; J45.909 Unspecified asthma, uncomplicated; I10 Essential (primary) hypertension; I69.354 Hemiplegia and hemiparesis following cerebral infarction affecting left non-dominant side
CPT/HCPCS: 36415; 70450; 71046; 80048; 80053; 81003; 82550; 82553 ×2; 82948 ×2; 83036; 83880; 84484 ×2; 85025 ×2; 93005; 93880; 99284; G0378 ×2; J2270; J2405

== ENCOUNTER → 2021-01-04 | Outpatient (CLI) | payer OTHER ==
[~2021-01-04] MED LIST changes: +ASPIRIN81 MG PO; +LASIX20 MG PO; +LOSARTAN POTASS25 MG PO; +METFORMIN HCL500 MG PO; +MONTELUKAST SOD10 MG PO; +POTASSIUM CHLO10 ME1 PO; +albuterol IH; +vit d3
== END ==
LOC: SLEEP 19:43
PROVIDERS: ATTEND Internal Medicine
DX: G47.33 Obstructive sleep apnea (adult) (pediatric) (principal); R06.83 Snoring; R53.83 Other fatigue
CPT/HCPCS: 95811

== ENCOUNTER → 2021-02-06 | Outpatient (CLI) | payer OTHER | LOC: MAMMO 08:50 | PROVIDERS: ATTEND Internal Medicine | DX: Z12.31 Encounter for screening mammogram for malignant neoplasm of breast (principal) | CPT/HCPCS: 77067 ==